=== PATIENT | female | born 1955 | race Caucasian/White ===

== ENCOUNTER → 2020-09-11 09:46 | Outpatient (CLI) | payer MEDICARE, OTHER, SELFPAY ==
--- NOTE | 2020-09-11 09:52 | CT_ITS ---
HISTORY: HEMATURIA TECHNIQUE: Helically acquired images were obtained of the abdomen and pelvis without oral or IV contrast. A radiation dose optimization technique was used for this scan. COMPARISON: None FINDINGS: # of images incl. paperwork: 409 LUNG BASES: clear. CT abdomen: Bones are unremarkable. The gallbladder remains. Liver, spleen, pancreas, and adrenal glands are normal. Bilateral nephrolithiasis. Scarring in the left kidney. Left UPJ obstructing stone. No more distal left ureteric stones. Right hydronephrosis. Right renal edema, right UPJ stone. Right periureteric edema proximally and renal edema. Within the distal right ureter, within a centimeter of the right ureterovesicular junction, there is a 2 x 2 mm stone.. The aorta is diseased with atherosclerotic plaque, but without aneurysm.. There is no intra-or extrahepatic biliary ductal dilatation. CT pelvis: No ascites is present. The uterus and ovaries are mildly atrophic. The appendix is normal. Today's to image 116. The bladder is decompressed. Diverticulosis within the descending and sigmoid colon. CT/Abdomen/Pelvis without Cont IMPRESSION: Many bilateral nephroliths. Bilateral UPJ obstructing stones. On the right it measures 10 mm. The left UPJ stone measures 9 mm. Within the distal right ureter, within a centimeter of the right ureterovesicular junction, there is a 2 x 2 mm obstructing stone. No significant left hydronephrosis. Right hydronephrosis, right hydroureter, right periureteric edema. Individualized dose optimization techniques were used for this CT. at 2138 Reported and signed by: Sarath Joseph MD Electronically Signed: Sarath Joseph MD at 21:37 EDT Tel , Service support ,
== END ==
LOC: CT 09:48
PROVIDERS: PCP Internal Medicine; Referring Provider Urology; Visit Provider Urology
DX: N20.0 Calculus of kidney (principal); M54.9 Dorsalgia, unspecified; R31.9 Hematuria, unspecified
CPT/HCPCS: 74176

== ENCOUNTER 2020-09-15 14:25 | Day surgery (SDC) | payer MEDICARE, OTHER, SELFPAY ==
--- NOTE | 2020-09-13 12:37 | NURSING ---
Pt reports she had Pfizer second vaccine on 08/29/20
[2020-09-15 15:20] VITALS: BP 148/75; PULSE 87; RESP 16; TEMP 36.8; O2SAT 93; BMI 22.4
[2020-09-15] MEDS: Lactated Ringers 1,000 ML 100 ML IV (15:26)
--- NOTE | 2020-09-15 15:46 | EKG12_ITS ---
Test Reason : PREOP Blood Pressure : / mmHG Vent. Rate : 086 BPM Atrial Rate : 086 BPM P-R Int : 156 ms QRS Dur : 082 ms QT Int : 384 ms P-R-T Axes : 081 -28 074 degrees QTc Int : 459 ms Normal sinus rhythm Poor R wave progression Confirmed by DA MCCARTY, MILVIA ([id number]), newspaper or periodical editor DRAGAN SMITH ([id number]) on 09/23/2020 11:36:10 AM Referred By: JACIEL Confirmed By:MILVIA ROBERSON MD
--- NOTE | 2020-09-15 16:56 | OP.PCM_ITS ---
Problem List (1) Ureteral calculus, right Status: Acute (2) Obstruction of left ureteropelvic junction (UPJ) due to stone Status: Acute (3) Obstruction of right ureteropelvic junction (UPJ) due to stone Status: Acute (4) Bilateral hydronephrosis Status: Acute Report of Operation Date of Procedure: 09/15/20 Pre-Operative Diagnosis: Bilateral ureteropelvic junction obstruction due to stones, right ureteral calculus, hydronephrosis Post-Operative Diagnosis: Same Surgery/Procedure Performed:: Cystoscopy, bilateral retrograde pyelogram, bilateral ureteral stent insertion, right ureteral pelvic junction extracorporal shockwave lithotripsy Type of Anesthesia:: General Description of Procedure: The patient is a 64-year-old female who developed flank pain and was evaluated with a CT scan revealing bilateral ureteral pelvic junction stones with obstruction and a right distal ureteral calculus. Informed consent was obtained for surgical intervention. She was taken to the operating room and placed on the operating table. Anesthesia monitored the head, neck, airway, IV access and vital signs throughout the case. Once anesthesia was appropriate ministered the patient was placed into dorsal lithotomy position was prepped and draped in usual sterile fashion. The cystoscope was inserted through the urethra under direct visualization into the urinary bladder. The bladder mucosa was visualized in its entirety without any mass lesion, erythema, ulceration or foreign body. At this time the right ureteral orifice was intubated with a 8 [place] cone-tip catheter and contrast was injected in retrograde fashion under fluoroscopic visualization. The distal ureteral calculus was identified. An approximately 3 to 4 mm in size. A 0.035 Glidewire was then used to intubate the right ureter. A 6 [place] 22 cm double-J stent was placed over the Glidewire and good curling was achieved in the renal pelvis as well as the urinary bladder. The stone appeared to be a conglomeration of multiple small stone fragments. Attention was then turned towards the left side where a 0.035 Glidewire was placed through the orifice into the renal pelvis. The stone previously seen in the pelvis on the CT scan was not observed however, an upper pole calcification was clearly visible. At this time the wire was removed and a retrograde pyelogram was performed. This revealed sludge within the renal pelvis. The Glidewire was then replaced and a 6 [place] 22 cm double-J stent was placed over the Glidewire. There was good curling in the renal pelvis and the urinary bladder. At this time the patient was aligned with the lithotripter over the stone fragments in the right renal pelvis. The extracorporal shockwave lithotripsy was performed. The patient was then awakened and taken the recovery room in good condition. There were no complications during this procedure. Grafts/Implants Used: 6x22 JJ stents - Complications none - Admit VTE Documentation VTE Present on Admission: Yes VTE Mechan Device Prophylaxis: SCD's VTE Pharm Prophylaxis ordered?: No Reason prophylaxis not ordered:: Treatment Not Indicated
[2020-09-15] MEDS: Cefazolin 2 GM in 0.9% Normal Saline 100 ML IV (16:58)
--- NOTE | 2020-09-15 16:58 | DCINST_ITS ---
Discharge Diet: No Restrictions Discharge Activity: May not drive while taking narcotic pain medications. May resume sexual activity in: No Restrictions Call your doctor if you observe: Fever of 101 or Higher, Inability to urinate, Inability to have a bowel movement, Calf discomfort, Uncontrolled pain Allergies/Adverse Reactions: Allergies GUERO Inhibitors Allergy (Verified 09/15/20 15:19) Other irritant cough azithromycin [From Zithromax] Allergy (Verified 09/15/20 15:19) PT UNSURE OF REACTION Medications to take at Discharge Cholecalciferol (Vitamin D3) [Vitamin D3] 250 mcg PO DAILY 09/13/20 Ciprofloxacin HCl 500 mg PO TID 09/13/20 Glimepiride 2 mg PO DAILY 09/13/20 Losartan Potassium 50 mg PO DAILY 09/13/20 Metformin HCl 1,000 mg PO BID 09/13/20 [place]-3 Fatty Acids/Fish Oil [[place] 3 Fish Oil Softgel] 1 each PO BID 09/13/20 Ondansetron HCl 8 mg PO PRN PRN 09/13/20 Sitagliptin Phosphate [Januvia] 100 mg PO DAILY 09/13/20 Primary Care Physician: Melissa Brooks DO [Primary Care Provider] - Test Results: Test results from this visit will be discussed in further detail at your follow- up appointment, if applicable. Please Follow Up With: Candice Holguin MD When: call office for instructions/appt Proposed Discharge Date: 09/15/20
[2020-09-15 18:26] VITALS: BP 148/75; PULSE 85; RESP 16; TEMP 36.3; O2SAT 99
[2020-09-15] MEDS: Ketorolac 30 MG/ML Syringe 15 MG IV (18:31)
[2020-09-15 18:32] VITALS: BP 148/75; BP 166/80; PULSE 86; RESP 16; O2SAT 96
[2020-09-15 18:45] VITALS: BP 148/75; BP 158/69; PULSE 87; RESP 16; O2SAT 95
[2020-09-15 18:51] VITALS: BP 148/75; BP 164/77; PULSE 90; RESP 16; TEMP 36.2; O2SAT 96
[2020-09-15 19:31] VITALS: BP 148/75; BP 181/80; PULSE 92; RESP 16; TEMP 36.3; O2SAT 92
== END 2020-09-15 19:32 | disposition home or self-care (01) ==
LOC: SDC 14:26 → AC 14:28
PROVIDERS: PCP Internal Medicine; Visit Provider Urology
PROC: 0TJ98ZZ Inspection of Ureter, Via Natural or Artificial Opening Endoscopic (ICD-10-PCS; CPT 52352; principal; 2020-09-15 15:50)
PROC: (CPT 50590; 2020-09-15 15:50)
DX: N13.2 Hydronephrosis with renal and ureteral calculous obstruction (principal); Z79.899 Other long term (current) drug therapy; Z79.84 Long term (current) use of oral hypoglycemic drugs; E11.9 Type 2 diabetes mellitus without complications; E78.00 Pure hypercholesterolemia, unspecified; I10 Essential (primary) hypertension; Z87.891 Personal history of nicotine dependence
CPT/HCPCS: 00873; 50590; 52332; 87426; 93005; J7120; C2625; J2405

== ENCOUNTER 2020-10-19 07:13 | Day surgery (SDC) | payer MEDICARE, OTHER, SELFPAY ==
[2020-10-19] VITALS (9 sets, daily range): BP systolic 121–189; BP diastolic 62–101; PULSE 75–98; RESP 14–18; TEMP 36–36.9; O2SAT 93–100; BMI 21.2
[2020-10-19] MEDS: Lactated Ringers 1,000 ML 100 ML IV ×2 (08:31→09:30)
--- NOTE | 2020-10-19 08:48 | HP.PCM_ITS ---
HPI - General HPI Narrative SEBAS DUMONT, is a 64 F who presents for cystoscopy, right ureteroscopy with laser lithotripsy and stent change along with left extracorporal shockwave lithotripsy. Informed consent has been obtained. [facility] Medical History Anemia Diabetes Hypertension Kidney stones Post-menopausal Smoker Wears glasses Home Medications cholecalciferol (vitamin D3) 250 mcg PO DAILY 09/13/20 [History Last Taken Unknown] glimepiride 2 mg PO DAILY 09/13/20 [History Last Taken Unknown] losartan 50 mg PO DAILY 09/13/20 [History Last Taken 10/19/20 05:00 50 MG] metformin 1,000 mg PO BID 09/13/20 [History Last Taken Unknown] omega-3 fatty acids-fish oil 1 each PO BID 09/13/20 [History Last Taken Unknown] sitagliptin 100 mg PO DAILY 09/13/20 [History Last Taken Unknown] Allergy/AdvReac Type Severity Reaction Status Date / Time GUERO Inhibitors Allergy Other Verified 10/19/20 07:57 azithromycin [From Zithromax] Allergy PT UNSURE Verified 10/19/20 07:57 OF REACTION Surgical History Hx of colonoscopy Hx of cystoscopy Hx of lithotripsy Social History Smoking Status: Current every day smoker ROS Constitutional Constitutional: Reports systems reviewed and no addt'l complaints, except as documented Eyes Eyes: Reports systems reviewed and no addt'l complaints, except as documented ENT HEENT: Reports systems reviewed and no addt'l complaints, except as documented Cardiovascular Cardiovascular: Reports systems reviewed and no addt'l complaints, except as documented Respiratory/Chest Respiratory/Chest: Reports systems reviewed and no addt'l complaints, except as documented Gastrointestinal Gastrointestinal: Reports nausea Genitourinary Genitourinary: Reports abdominal discomfort, burning urination, urinary frequency and urinary urgency Musculoskeletal Musculoskeletal: Reports systems reviewed and no addt'l complaints, except as documented Integumentary Integumentary: Reports systems reviewed and no addt'l complaints, except as documented Neurologic Neurologic: Reports systems reviewed and no addt'l complaints, except as documented Psychiatric Psychiatric: Reports systems reviewed and no addt'l complaints, except as documented Endocrine Endocrinology: Reports systems reviewed and no addt'l complaints, except as documented Hematologic/Lymphatic Hematologic/Lymphatic: Reports systems reviewed and no addt'l complaints, except as documented Allergic/Immunologic Allergic/Immunologic: Reports systems reviewed and no addt'l complaints, except as documented Vital Signs Vital Signs Vital Signs: 10/19/20 07:59 Temperature 97.3 F L Temperature Source Temporal Pulse Rate 98 Respiratory Rate 14 Respiratory Pattern Irregular Blood Pressure 131/62 H Blood Pressure Mean 85 Blood Pressure Source Monitor Blood Pressure Position Semi-Fowlers Blood Pressure Location Left Arm Pulse Ox 94 Oxygen Delivery Method Room Air Physical Exam Const alert, oriented x3, no apparent distress and healthy appearing General Appearance: cooperative, comfortable and well developed HEENT normocephalic and head/scalp atraumatic Eyes General Eye: normal appearance of both eyes Chest inspection of chest normal Chest: symmetrical chest wall rise Resp normal respiratory effort and normal air movement Effort and Inspection: able to speak in complete sentences and symmetric chest movement Cardio regular rate and regular rhythm GI soft to palpation, non-tender and non-distended Back/Spine normal to inspection Extremity normal to inspection Skin no rashes or lesions noted Neuro oriented x3, CN's II-XII intact bilaterally and moves all extremities Psych Mood & Affect: euthymic mood Assessment & Plan Assessment/Plan (1) Ureteral calculus, right: PLAN: Right ureteroscopy, possible laser lithotripsy with right ureteral stent change (2) Obstruction of left ureteropelvic junction (UPJ) due to stone: PLAN: Left extracorporal shockwave lithotripsy (3) Obstruction of right ureteropelvic junction (UPJ) due to stone: (4) Bilateral hydronephrosis: Procedure Criteria Procedure Type: Elective COVID Risk Discussion: The surgeon/proceduralist and patient have discussed in detail the risk of exposure to and/or potential harm posed by the COVID-19 virus with having a surgery/procedure at this time versus the risk of delaying the surgery/procedure. It is not possible to know either the risk of delaying the surgery or procedure or chance of getting an infection with perfect accuracy, but a joint decision was made between the patient and the surgeon/proceduralist to proceed at this time with the scheduled surgery/procedure as indicated on the consent form.
[2020-10-19] MEDS: Cefazolin 2 GM in 0.9% Normal Saline 100 ML IV (09:00)
[2020-10-19 09:51] LABS: Bedside Glucose 188 mg/dL (70-110)
--- NOTE | 2020-10-19 10:40 | OP.PCM_ITS ---
Problems Associated Problem List Diagnoses (1) Ureteral calculus, right: (2) Obstruction of left ureteropelvic junction (UPJ) due to stone: (3) Obstruction of right ureteropelvic junction (UPJ) due to stone: (4) Bilateral hydronephrosis: Report of Operation Date of Procedure: 10/19/20 Pre-Operative Diagnosis: Bilateral UPJ obstruction due to stone, right ureteral calculus, bilateral hydronephrosis Post-Operative Diagnosis: Same Surgery/Procedure Performed:: Cystoscopy, right ureteroscopy, holmium laser lithotripsy, stone basket extraction, right ureteral stent change, left ureteral stent change, left renal extracorporal shockwave lithotripsy Type of Anesthesia: General Specimen's removed: None Description of Procedure: The patient is a 64-year-old female who developed bilateral obstructing g UPJ calculi along with a right ureteral calculus. She previously underwent bilateral ureteral stent insertion with right extracorporal shockwave lithotripsy. She now presents for further therapy for the left stone as well as ureteroscopy for any remaining stones on the her right side. Informed consent was obtained. The patient was taken to the operating room and placed on the operating room table. Anesthesia monitored the head, neck, airway, IV access and vital signs throughout the case. Once anesthesia was apparently ministered the patient was placed into dorsal lithotomy position and was prepped and draped in usual sterile fashion. A cystourethroscopy was performed revealing the bilateral ureteral stents. The right 1 was grasped and pulled into the urethra which inadvertently pulled the left ureteral stent into the urethra as well. At this time wires were introduced into each stent and the stents were then removed leaving the wires in good position in the renal pelvises bilaterally. A left ureteral stent was then inserted over the left wire with good curling in the renal pelvis as well as the urinary bladder. The left renal calculus was easily visualized on fluoroscopy. On the right side no stones were visualized on fluoroscopy initially. A second wire was passed alongside the initial 1, and th e flexible ureteroscope was then passed over the second wire without difficulty. A large grouping of stone fragments was identified in the midpole of the right kidney. This area was broken down further using the holmium laser. A few fragments were basket retrieved into the urinary bladder. Most of the fragments were small and unable to be successfully basket retrieved. Upon reentry into the distal ureter, with the ureteroscope, the start of a false passage was identified. To avoid further developing this passage, the decision was made to place a ureteral stent and and intervention on the right side. A 6 Citizen [place] 22 cm JJ stent was inserted over the safety wire with good curling in the renal pelvis as well as the urinary bladder. The patient's bladder was then emptied and the left renal shockwave lithotripsy was performed without difficulty. The patient tolerated the procedure well and received 3000 shocks on the left side. She was then awakened and taken to the recovery room in good condition. there were no complications. Grafts/Implants Used: 6 x 22 JJ stent x2 Admit VTE Documentation VTE Present on Admission: Yes VTE Mechan Device Prophylaxis: SCD's VTE Pharm Prophylaxis ordered?: No Reason prophylaxis not ordered:: Treatment Not Indicated
--- NOTE | 2020-10-19 10:47 | PCM.DC ---
Discharge Instructions Diet Discharge Diet: No restrictions Activity Discharge Activity: Return to Normal Activity, May not drive while taking narcotic pain medications. and May Shower May resume sexual activity in: No Restrictions Dressing / Incision Call your doctor if you observe: Fever of 101 or Higher, Inability to urinate, Inability to have a bowel movement and Uncontrolled pain Follow Up Care Please Follow Up With: Candice Holguin MD When: in office in 2 weeks, call for appt Test Results: Test results from this visit will be discussed in further detail at your follow-up appointment, if applicable. Discharge Plan Admission Primary Reason for Your Visit: bilateral hydronephrosis, bilateral UPJ stones, right ureteral calculus Attending Provider: Candice Holguin Primary Care Provider: Melissa Brooks Discharge Orders/Prescriptions Prescriptions: New cephalexin 500 mg capsule 500 mg PO Q12 Qty: 6 RF: 0 ondansetron HCl [Zofran] 4 mg tablet 4 mg PO Q8H PRN (Reason: nausea and vomiting) 7 Days Qty: 20 RF: 0 oxycodone-acetaminophen [Percocet] 5-325 mg tablet 1 tab PO Q8H PRN (Reason: pain) 7 Days Qty: 20 RF: 0 phenazopyridine [Pyridium] 200 mg tablet 200 mg PO TID PRN PRN (Reason: Bladder Spasms) Qty: 30 RF: 0 Continued losartan 50 MG tablet 50 mg PO DAILY RF: 0 glimepiride 2 MG tablet 2 mg PO DAILY RF: 0 metformin 1,000 MG tablet 1,000 mg PO BID RF: 0 sitagliptin 100 MG tablet 100 mg PO DAILY RF: 0 omega-3 fatty acids-fish oil 1 EACH capsule,delayed release(DR/EC) 1 each PO BID RF: 0 cholecalciferol (vitamin D3) 250 MCG tablet 250 mcg PO DAILY RF: 0 Referrals / Follow Up: Melissa Brooks DO [Primary Care Provider] - Disposition Disposition (needs filled in before D/C Order can be placed): Home, self care
[2020-10-19 12:11] LABS: Bedside Glucose 171 mg/dL (70-110)
[2020-10-19] MEDS: Acetaminophen 325 MG Tablet PO (12:54)
[2020-10-19] MEDS: oxyCODONE 5 MG Tablet PO (12:55)
== END 2020-10-19 14:05 | disposition home or self-care (01) ==
LOC: SDC 07:14 → AC 07:16
PROVIDERS: PCP Internal Medicine; Referring Provider Urology; Visit Provider Urology
PROC: 0TJ98ZZ Inspection of Ureter, Via Natural or Artificial Opening Endoscopic (ICD-10-PCS; CPT 52352; principal; 2020-10-19 08:40)
PROC: (CPT 50590; 2020-10-19 08:40)
DX: N13.2 Hydronephrosis with renal and ureteral calculous obstruction (principal); I10 Essential (primary) hypertension; E11.9 Type 2 diabetes mellitus without complications; F17.200 Nicotine dependence, unspecified, uncomplicated; Z79.84 Long term (current) use of oral hypoglycemic drugs; Z79.899 Other long term (current) drug therapy
CPT/HCPCS: 00873; 50590; 52356; 82962; J7120; C2625

== ENCOUNTER → 2020-11-03 08:30 | Outpatient (CLI) | payer MEDICARE, OTHER, SELFPAY ==
[2020-10-19 07:59] VITALS: BMI 21.2
--- NOTE | 2020-11-03 08:33 | CT_ITS ---
STUDY: CT ABDOMEN AND PELVIS WITHOUT CONTRAST REASON FOR EXAM: Female, 64 years old. Kidney stones. History of prior ESWL. Bilateral stent placement. RADIATION DOSAGE (If Supplied By Facility): CTDIvol = ( 6.04 ) mGy, DLP = ( 256.69 ) mGycm TECHNIQUE: Transaxial images were obtained from the dome of the diaphragm to the symphysis pubis without oral contrast, and without intravenous contrast. Sagittal and coronal images were reconstructed. Individualized dose optimization techniques were used for this CT. COMPARISON: Comparison is made with prior examination dated 09/11/2020. FINDINGS: The visualized lung bases are unremarkable. The visualized portions of the heart are within normal limits. Normal liver. Normal gallbladder and extrahepatic biliary system. Normal spleen. Normal pancreas. Normal bilateral adrenal glands. A right-sided double-J stent catheter is seen. Mild degree of right hydronephrosis. 2 mm calculus is in the posterior mid pole calyx of the right kidney. Punctate calcifications are also seen in the anterior pole calyx as well. There is a 7.1 mm calculus in the lower pole calyx of the right kidney. Moderate degree of left hydronephrosis. There is a 4.1 mm calculus in the lower pole calyx of the left kidney. This also evidence of a 7 mm calculus in the posterior midpole of the left kidney. I also suspect a 7.7 Limited crackers in the anterior aspect of the upper pole calyx. There is also evidence of a small left perinephric fluid collection most likely a resolving hematoma following ESWL. This measures 3.7 cm x 1.5 cm. Normal visualized stomach. Normal small intestine. There are multiple colonic diverticula consistent with diverticulosis. The appendix is visualized and appears normal. Normal abdominal aorta. Normal inferior vena cava. Normal retroperitoneum. The bladder is empty. Normal abdominal wall. There are mild degenerative changes of the visualized lumbar spine. CT/Abdomen/Pelvis without Cont IMPRESSION: Bilateral double-J stent catheters. Persistent bilateral nonobstructive intrarenal calculi are Small left perinephric fluid collection suggestive of resolving hematoma following ESWL. Electronically Signed: Hardeep Pacheco MD at 10:59 EDT , Service support ,
== END ==
PROVIDERS: PCP Internal Medicine; Referring Provider Urology; Visit Provider Urology
DX: N20.0 Calculus of kidney (principal)
CPT/HCPCS: 74176

== ENCOUNTER 2020-11-19 06:04 | Day surgery (SDC) | payer MEDICARE, OTHER, SELFPAY ==
[2020-10-19 07:59] VITALS: BMI 21.2
[2020-11-19 06:41] VITALS: BP 134/73; PULSE 87; RESP 16; TEMP 36.8; O2SAT 93; BMI 20.7
[2020-11-19] MEDS: Lactated Ringers 1,000 ML 100 ML IV (06:41)
[2020-11-19 06:56] LABS: Bedside Glucose 126 mg/dL (70-110)
--- NOTE | 2020-11-19 07:30 | CALC_PTH ---
PATIENT: SEBAS DUMONT LOC: [facility] U#:[id number] AGE/SX: 64/F ROOM: RE11/19/[address]: Dr. Candice Holguin MD : [id number] BED: DIS: 11/19/2020 SPEC #: [id number] RECD: 11/19/20 10:05 STATUS: PRIYANKA COPELAND #: [id number] VALE: 11/19/20 07:[address]: Candice Holguin DEPT: SURGICAL PATHOLOGY RECD BY: Jenn Chin ENTERED: 11/19/20 10:18 SP TYPE: Calculi OTHR DR: Dr. Melissa Brooks DO Tissues: CALCULI Procedures: Surgery Specimen Level I HEADER OPERATION: Cysto, ureteroscopy laser stent change and stone basket PRE-OP DIAGNOSIS: Calculus of kidney, hydronephrosis, calculus of ureter, urgency of urination TISSUE SUBMITTED: Calculus GROSS DIAGNOSIS Calculus of kidney, removal. Fragments of unremarkable calculi (gross diagnosis only). AM:trupti 11/22/2020 COMMENT The calculus is submitted in its entirety for chemical stone analysis. The results from this study will be reported separately. GROSS DESCRIPTION Received without fixative labeled with the patient's name and designated calculus. The specimen consists of multiple irregular fragments of dark cabrera calculi measuring in aggregate 0.5 x 0.3 x 0.1 cm. The specimen is submitted in its entirety for chemical stone analysis. / AM:trupti 11/19/20 CPT: 85689
[2020-11-19] MEDS: Cefazolin 2 GM in 0.9% Normal Saline 100 ML IV (07:35)
[2020-11-19] MEDS: Lubricating Jelly 60 GM Tube 30 GM TOPICAL (07:39)
--- NOTE | 2020-11-19 08:32 | OP.PCM_ITS ---
Problems Associated Problem List Diagnoses (1) Left ureteral calculus: Report of Operation Date of Procedure: 11/19/20 Pre-Operative Diagnosis: Left ureteral calculus Post-Operative Diagnosis: Same Surgery/Procedure Performed:: Cystoscopy, left ureteroscopy, holmium laser lithotripsy, stone basket extraction, left ureteral stent change Surgeon: Candice Holguin medicine technologist: Lisa Type of Anesthesia: General Specimen's removed: Stone fragments Description of Procedure: The patient is a 64-year-old female who at 1 point had bilateral obstructing stones, now with left ureteral stones, left renal stones and right lower pole stone fragments. She now presents for removal of her left ureteral stones with stent change. Informed consent was obtained. The patient was taken to the operating room and placed on the operating room table. Anesthesia monitored the head, neck, airway, IV access and vital signs throughout the case. Once anesthesia was appropriately ministered the patient was placed into dorsal lithotomy position was prepped and draped in usual sterile fashion. A cystoscope was inserted through the urethra under direct visualization into the urinary bladder. The left ureteral stent was visualized grasped with graspers and pulled to the urethra. I was unable to insert a wire through the stent, so the stent was removed. A 0.035 Glidewire was then passed into the left ureteral orifice and extended into the renal pelvis. A second safety wire was then placed. Using the flexible ureteroscope over one of the wires, access to the patient's renal pelvis was easily obtained. Every calyceal was directly visualized. There were 2 areas where the stone appeared to be behind the parenchyma evidenced by the yellow coloration, however there were no stones visualized within the collecting system. On visualizing the ureter there were several stone fragments identified. Using the 270 ?m laser fiber, the stones were fragmented into small pieces and were then basket retrieved and sent for analysis. After several fragments were removed, the patient had a ureter free from stone. Using the remaining safety wire, a new 6 [place] 22 JJ stent was inserted with good curling in the renal pelvis as well as the urinary bladder. The patient was then awakened and taken to the recovery room in good condition. There were no complications during this procedure. Grafts/Implants Used: 6 x 22 JJ stent Complications None Admit VTE Documentation VTE Present on Admission: Yes VTE Mechan Device Prophylaxis: SCD's VTE Pharm Prophylaxis ordered?: No Reason prophylaxis not ordered:: Treatment Not Indicated
[2020-11-19 08:34] VITALS: BP 120/97; BP 134/73; PULSE 91; RESP 16; TEMP 36.4; O2SAT 100
--- NOTE | 2020-11-19 08:37 | PCM.DC ---
Discharge Instructions Diet Discharge Diet: No restrictions Activity Discharge Activity: Return to Normal Activity May resume sexual activity in: No Restrictions Dressing / Incision Call your doctor if you observe: Fever of 101 or Higher, Inability to urinate, Inability to have a bowel movement, Calf discomfort and Uncontrolled pain Follow Up Care Please Follow Up With: Candice Holguin MD When: Call office for appointment to have stent removed next week Test Results: Test results from this visit will be discussed in further detail at your follow-up appointment, if applicable. Discharge Plan Admission Attending Provider: aCndice Holguin Primary Care Provider: Melissa Brooks Discharge Orders/Prescriptions Prescriptions: New ondansetron HCl [ondansetron HCl] 8 MG tablet 8 mg PO Q8H PRN PRN (Reason: Nausea) 7 Days Qty: 20 RF: 0 oxycodone-acetaminophen [oxycodone-acetaminophen] 1 TABLET tablet 2 tab PO Q8H PRN PRN (Reason: Pain) 7 Days Qty: 20 RF: 0 cephalexin [cephalexin] 500 MG capsule 500 mg PO Q12 3 Days Qty: 6 RF: 0 Continued losartan 50 MG tablet 50 mg PO DAILY RF: 0 glimepiride 2 MG tablet 2 mg PO DAILY RF: 0 metformin 1,000 MG tablet 1,000 mg PO BID RF: 0 Januvia 100 MG tablet 100 mg PO DAILY RF: 0 omega-3 fatty acids-fish oil 1 EACH capsule,delayed release(DR/EC) 1 each PO BID RF: 0 cholecalciferol (vitamin D3) 250 MCG tablet 250 mcg PO DAILY RF: 0 ondansetron HCl [Zofran] 4 mg tablet 4 mg PO Q8H PRN (Reason: nausea and vomiting) 7 Days Qty: 20 RF: 0 oxycodone-acetaminophen [Percocet] 5-325 mg tablet 1 tab PO Q8H PRN (Reason: pain) 7 Days Qty: 20 RF: 0 rosuvastatin 20 mg Tablet 20 mg PO DAILY RF: 0 methen-sod phos-meth blue-hyos [Urogesic-Blue] 81.6-40.8-0.12 mg tablet 4 tab PO DAILY RF: 0 Referrals / Follow Up: Melissa Brooks DO [Primary Care Provider] - Disposition Disposition (needs filled in before D/C Order can be placed): Home, self care
[2020-11-19 08:47] VITALS: BP 133/52; BP 134/73; PULSE 86; RESP 16; O2SAT 98
[2020-11-19 09:00] VITALS: BP 107/50; BP 134/73; PULSE 87; RESP 16; O2SAT 99
[2020-11-19 09:07] VITALS: BP 109/52; BP 134/73; PULSE 83; RESP 16; TEMP 36.4; O2SAT 100
[2020-11-19 09:30] LABS: Bedside Glucose 116 mg/dL (70-110)
[2020-11-19 10:04] VITALS: BP 134/73; BP 138/57; PULSE 91; RESP 16; TEMP 37; O2SAT 98
== END 2020-11-19 10:06 | disposition home or self-care (01) ==
LOC: SDC 06:04 → AC 06:06
PROVIDERS: PCP Internal Medicine; Referring Provider Urology; Visit Provider Urology
PROC: 0TJ98ZZ Inspection of Ureter, Via Natural or Artificial Opening Endoscopic (ICD-10-PCS; CPT 52352; principal; 2020-11-19 07:20)
DX: N20.1 Calculus of ureter (principal); Z79.899 Other long term (current) drug therapy; Z79.84 Long term (current) use of oral hypoglycemic drugs; E11.9 Type 2 diabetes mellitus without complications; I10 Essential (primary) hypertension
CPT/HCPCS: 52356; 76000; 82360; 82962; 88300; J7120; C2625; J2405

== ENCOUNTER → 2021-02-18 08:44 | Outpatient (CLI) | payer MEDICARE, OTHER, SELFPAY ==
--- NOTE | 2021-02-18 08:46 | RAD_ITS ---
STUDY: X-RAY - ABDOMEN/PELVIS REASON FOR EXAM: Female, 65 years old. KUB- KIDNEY STONES TECHNIQUE: Single AP view of the abdomen / pelvis. COMPARISON: None. FINDINGS: Normal visualized lung bases. There is an abundance of fecal material throughout the colon. There is a 4.1 mm calculus in the upper midportion of the left kidney. Normal soft tissue structures. Normal visualized osseous structures. RAD/Abdomen Single View IMPRESSION: 4.1 mm calculus in the upper midportion of the left kidney. Electronically Signed: Hardeep Pacheco MD at 14:05 EDT , Service support ,
== END ==
PROVIDERS: PCP Internal Medicine; Referring Provider Urology; Visit Provider Urology
DX: N20.0 Calculus of kidney (principal)
CPT/HCPCS: 74018

== ENCOUNTER → 2021-02-25 11:31 | Outpatient (CLI) | payer MEDICARE, OTHER, SELFPAY ==
--- NOTE | 2021-02-25 11:35 | US_ITS ---
STUDY: RENAL ULTRASOUND - COMPLETE REASON FOR EXAM: Female, 65 years old. History of renal calculi. TECHNIQUE: Ultrasound evaluation of the kidneys was performed with real-time and static hauser-scale imaging. COMPARISON: None. FINDINGS: RIGHT KIDNEY: Normal location of the right kidney, which is normal in size. The right kidney measures 10.4 cm x 6.3 cm x 4.1 cm. There is a normal cortex of the right kidney. The renal cortex measures 1.2 cm. There is no right renal mass or cyst. There several small nonobstructive intrarenal calculi. The larger measures 8 mm x 9 mm x 4 mm in the lower pole. There is no right hydronephrosis. DISTAL RIGHT URETER: There is non-visualization of the distal right ureter. There is no demonstrated right ureterovesical junction calculus. There is a visualized right ureteral jet. LEFT KIDNEY: Normal location of the left kidney, which is normal in size. The left kidney measures 11.2 cm x 5.1 signed by 4.7 cm. There is a normal cortex of the left kidney. The renal cortex measures 2.2 cm. There is no left renal mass or cyst. Nonobstructive left intrarenal calculi. The largest is in the upper pole and measures 6 mm x 8 mm x 4 mm. There is no left hydronephrosis. DISTAL LEFT URETER: There is non-visualization of the distal left ureter. There is no demonstrated left ureterovesical junction calculus. There is a visualized left ureteral jet. BLADDER: The distended urinary bladder has a volume of 325.5 ml. The empty urinary bladder has a volume of 49.3 ml. There is a normal wall thickness of the distended urinary bladder. There is no demonstrated mass within the urinary bladder. There are no demonstrated bladder calculi. US/Kidney and Bladder IMPRESSION: Small bilateral nonobstructive intrarenal calculi. Electronically Signed: Hardeep Pacheco MD at 14:37 EDT , Service support ,
== END ==
PROVIDERS: PCP Internal Medicine; Visit Provider Urology
DX: N20.0 Calculus of kidney (principal)
CPT/HCPCS: 76770

== ENCOUNTER 2021-09-07 09:53 | Outpatient (CLI) | payer MEDICARE, OTHER, SELFPAY ==
--- NOTE | 2021-09-07 09:56 | RAD_ITS ---
STUDY: X-RAY - ABDOMEN/PELVIS REASON FOR EXAM: Female, 65 years old. KUB TECHNIQUE: Single AP view of the abdomen / pelvis. COMPARISON: 02/18/2021 FINDINGS: Normal visualized lung bases. There is an unremarkable bowel gas pattern. The visualized liver, spleen and kidneys are grossly normal in size and morphology. Normal soft tissue structures. Normal visualized osseous structures. RAD/Abdomen Single View IMPRESSION: Normal x-ray examination of the abdomen and pelvis. Electronically Signed: Jerald Olivier MD at 17:06 EDT ,
== END 2021-09-07 23:59 | disposition home or self-care (01) ==
LOC: MTRAD 09:54
PROVIDERS: PCP Internal Medicine; Referring Provider Urology; Visit Provider Urology
DX: N20.0 Calculus of kidney (principal)
CPT/HCPCS: 74018

== ENCOUNTER → 2022-07-24 | Outpatient (CLI) | payer MEDICARE, OTHER, SELFPAY ==
--- NOTE | 2022-07-24 10:38 | RAD_ITS ---
HISTORY: STONES. TECHNIQUE: XR Abdomen 1 View. COMPARISON: 09/07/2021. FINDINGS: BOWEL GAS PATTERN: No dilated bowel loops identified. Moderate stool in the colon. FREE AIR: Not assessed on supine view. CALCIFICATIONS: 4 mm left renal calculus again seen. Possible 2 mm right upper pole calculus. BONES: Unremarkable. RAD/Abdomen Single View IMPRESSION: Nephrolithiasis as above. Electronically Signed: Luisa Mendieta MD at 9:46 EST ,
== END | disposition home or self-care (01) ==
LOC: MTRAD 10:36
PROVIDERS: PCP Internal Medicine; Referring Provider Urology; Visit Provider Urology
DX: N20.0 Calculus of kidney (principal)
CPT/HCPCS: 74018

== ENCOUNTER → 2023-05-28 | Outpatient (CLI) | payer MEDICARE, OTHER, SELFPAY ==
--- NOTE | 2023-05-28 09:34 | RAD_ITS ---
INDICATION: KUB- STONES EXAMINATION/TECHNIQUE: X-RAY - XR Abdomen 1 View COMPARISON: 07/24/2022 FINDINGS: BOWEL GAS PATTERN: Non-obstructive. No bowel or stomach distention. FREE AIR: Not assessed on a single supine view. ORGANOMEGALY: Not seen. CALCIFICATIONS: Redemonstration of a 4 mm calcification overlying the LEFT kidney. Additional note of a subtle calcification measuring approximately 3 mm overlying the upper pole RIGHT kidney. No other calcifications noted. LOWER CHEST: No acute pathology. BONES AND SOFT TISSUES: No acute pathology. RAD/Abdomen Single View IMPRESSION: 1. Bilateral nephrolithiasis. 4 mm calcification overlying the LEFT kidney and 3 mm calcification overlying the upper pole RIGHT kidney. 2. Normal bowel gas pattern. Electronically Signed: Jerald Wallis MD at 0:06 EST ,
== END | disposition home or self-care (01) ==
PROVIDERS: PCP Internal Medicine; Referring Provider Urology; Visit Provider Urology
DX: N20.0 Calculus of kidney (principal)
CPT/HCPCS: 74018